=== PATIENT | male | born 1970 | race Caucasian/White ===

== ENCOUNTER 2019-01-02 14:29 | Inpatient (IN) | payer MEDICAID, OTHER ==
--- NOTE | 2019-01-02 15:37 | ED ---
Psych HPI - General Source: patient Mode of arrival: ambulatory <Imani Leon - Last Filed: 01/02/19 23:03> <Hua Mclain - Last Filed: 01/02/19 23:29> - General Chief Complaint: Psychiatric Symptoms Stated Complaint: Psych- Suicidal Time Seen by Provider: 01/02/19 14:45 - History of Present Illness Initial Comments: 48yo male presenting today for cc of "brought here by brother" pt brought in by brother [place] surveillance sensor officer after receiving text indicative of suicidal ideations. Pt has made threats of killing himself with a gun. Pt states he does have suicidal ideations with increased today. Pt has no diagnosed psychiatric history, pt takes no medications. Pt denies ingesting any substances today in attempt to commit suicide. Pt petitioned by brother. Pt appears anxious upon history taking. Pt states he has been depressed for years since his left his after cheating on him taking their children to [place]. Pt drinks often, admitting to drinking today. Remaining ROS (-), patient denies any recent fever , chills, shortness of breath, chest pain, back pain, abdominal pain, nausea or vomiting, numbness or tingling, dysuria or hematuria, constipation or diarrhea, headaches or visual changes, or any other complaints.upon arrival pt appears anxious. Denies any other complaints. Denies homicidal ideations. (Imani Leon) - Related Data Home Medications Medication Instructions Recorded Confirmed No Known Home Medications 01/02/19 01/02/19 Allergies Allergy/AdvReac Type Severity Reaction Status Date / Time Penicillins Allergy Unknown Verified 01/02/19 15:49 Childhood Review of Systems ROS Other: All systems not noted in ROS Statement are negative. <Imani Leon - Last Filed: 01/02/19 23:03> ROS Other: All systems not noted in ROS Statement are negative. <Hua Mclain - Last Filed: 01/02/19 23:29> ROS Statement: Those systems with pertinent positive or pertinent negative responses have been documented in the HPI. Past Medical History Past Medical History: No Reported History Additional Past Medical History / Comment(s): kidney stones History of Any Multi-Drug Resistant Organisms: None Reported Past Psychological History: Anxiety, Depression Smoking Status: Current every day smoker Past Alcohol Use History: None Reported, Daily, Heavy Past Drug Use History: None Reported <Imani Leon - Last Filed: 01/02/19 23:03> General Exam Limitations: no limitations <Imani Leon - Last Filed: 01/02/19 23:03> <Hua Mclain - Last Filed: 01/02/19 23:29> - General Exam Comments Initial Comments: General: The patient is awake and alert, in no distress, and does not appear acutely ill. Eye: +3 mm pupils are equal, round and reactive to light, extra-ocular movements are intact. No nystagmus. There is normal conjunctiva bilaterally. No signs of icterus. Ears, nose, mouth and throat: There are moist mucous membranes and no oral lesions. Neck: The neck is supple, there is no tenderness or JVD. Cardiovascular: There is a regular rate and rhythm. No murmur, rub or gallop is appreciated. Respiratory: Lungs are clear to auscultation, respirations are non-labored, breath sounds are equal. No wheezes, stridor, rales, or rhonchi. Gastrointestinal: Soft, non-distended, non-tender abdomen without masses or organomegaly noted. There is no rebound or guarding present. Musculoskeletal: Normal ROM, no tenderness. Strength 5/5. Sensation intact. Radial pulses equal bilaterally 2+. Neurological: A&O x 3. CN II-XII intact, There are no obvious motor or sensory deficits. Coordination appears grossly intact. Speech is normal. Skin: Skin is warm and dry and no rashes or lesions are noted. Psychiatric: Cooperative, appropriate mood & affect, normal judgment. (Imani Leon) Course <Imani Leon - Last Filed: 01/02/19 23:03> <Hua Mclain - Last Filed: 01/02/19 23:29> Vital Signs 01/02/19 14:35 Temperature 97.9 F Pulse Rate 95 Respiratory 18 Rate Blood Pressure 111/74 O2 Sat by Pulse 100 Oximetry - Reevaluation(s) Reevaluation #1: 01/02/19 23:27 The patient was brought in under petition for depression and suicidal ideation. He did personally do a [id number] evaluation the patient will be admitted I did fill out a clinical certain. (Hua Mclain) Medical Decision Making <Imani Leon - Last Filed: 01/02/19 23:03> <Hua Mclain - Last Filed: 01/02/19 23:29> - Medical Decision Making Patient petitioned by brother for suicidal thoughts. PE revealed anxiety. Pt ETOH elevated. Sober at 10:00PM. No other remarkable physical examination findings. Pt given ativan. EPS recommended admission for evaluation. Pt certified by attending provider Dr. Riley. (SanjeevjyotsnaImani Paula) - Lab Data Lab Results 01/02/19 Range/Units 15:24 Urine Color Light Yellow Urine Appearance Clear (Clear) Urine pH 7.0 (5.0-8.0) Ur Specific [place] 1.004 (1.001-1.035) Urine Protein 1+ H (Negative) Urine Glucose (UA) Negative (Negative) Urine Ketones Negative (Negative) Urine Blood Moderate H (Negative) Urine Nitrite Negative (Negative) Urine Bilirubin Negative (Negative) Urine Urobilinogen <2.0 (<2.0) mg/dL Ur Leukocyte Esterase Large H (Negative) Urine RBC 8 H (0-5) /hpf Urine WBC 22 H (0-5) /hpf Ur Squamous Epith Cells <1 (0-4) /hpf Urine Bacteria Rare H (None) /hpf Urine Opiates Screen Not Detected (NotDetected) Ur Oxycodone Screen Not Detected (NotDetected) Urine Methadone Screen Not Detected (NotDetected) Ur Propoxyphene Screen Not Detected (NotDetected) Ur Barbiturates Screen Not Detected (NotDetected) U Tricyclic Antidepress Not Detected (NotDetected) Ur Phencyclidine Scrn Not Detected (NotDetected) Ur Amphetamines Screen Not Detected (NotDetected) U Methamphetamines Scrn Not Detected (NotDetected) U Benzodiazepines Scrn Not Detected (NotDetected) Urine Cocaine Screen Not Detected (NotDetected) U Marijuana (THC) Screen Not Detected (NotDetected) Disposition <Imani Leon Chai - Last Filed: 01/02/19 23:03> <Hua Mclain - Last Filed: 01/02/19 23:29> Clinical Impression: Depression, Suicidal ideation Disposition: TRANSFER TO PSYCH HOSP/UNIT Condition: Serious
[2019-01-02 15:46] LABS: Appearance,Urine Clear (Clear); Bacteria,Urine Rare /hpf; Bilirubin,Urine Negative (Negative); Blood,Urine Moderate (Negative); Color,Urine Light Yellow; Glucose,Urine (UA) Negative (Negative); Ketones,Urine Negative (Negative); Leukocyte Esterase,Urine Large (Negative); Nitrite,Urine Negative (Negative); Protein,Urine 1+ (Negative); RBC,Urine 8 /hpf (0-5); Specific Gravity,Urine 1.004 (1.001-1.035); Squamous Epithelial Cell,Urine <1 /hpf (0-4); Urobilinogen,Urine <2.0 mg/dL (<2.0); WBC,Urine 22 /hpf (0-5)
[2019-01-02 15:50] LABS: Amphetamine Screen,Urine Not Detected (NotDetected); Barbiturate Screen,Urine Not Detected (NotDetected); Benzodiazepines Screen,Urine Not Detected (NotDetected); Cocaine Screen,Urine Not Detected (NotDetected); Methadone Screen, Urine Not Detected (NotDetected); Opiate Screen,Urine Not Detected (NotDetected); Oxycodone Screen, Urine Not Detected (NotDetected); Phencyclidine Screen,Urine Not Detected (NotDetected); Tricyclic Antidepressant,Urine Not Detected (NotDetected); Urn Cannabinoid Scrn Not Detected (NotDetected)
[2019-01-02] MEDS ORDERED: LORazepam 1 MG TAB PO STA (22:39)
[2019-01-02] MEDS ORDERED: MAG HYDROX/AL HYDROX/SIMETH 30 ML CUP PO PRN (23:15)
[2019-01-02] MEDS ORDERED: ACETAMINOPHEN TAB 325 MG TAB PO PRN (23:15)
[2019-01-02] MEDS ORDERED: ZIPRASIDONE 20 MG VIAL IM PRN (23:15)
[2019-01-02] MEDS ORDERED: MAGNESIUM HYDROXIDE 2,400 MG/10 ML CUP PO PRN (23:15)
[2019-01-02] MEDS ORDERED: LORazepam 2 MG/ML INJ IM PRN ×2 (23:19→23:23)
[2019-01-03] MEDS: LORazepam 1 MG TAB PO PRN ×3 (00:05→20:00)
[2019-01-03 08:58] LABS: Basophils # (A) 0.1 k/uL (0-0.2); Basophils % (A) 1 %; Eosinophils # (A) 0.1 k/uL (0-0.7); Eosinophils % (A) 2 %; HCT 44.2 % (39.0-53.0); HGB 14.2 gm/dL (13.0-17.5); Hypochromasia Slight; Lymphocytes % (A) 15 %; MCH 32.9 pg (25.0-35.0); MCHC 32.1 g/dL (31.0-37.0); MCV 102.6 fL (80.0-100.0); Macrocytosis Slight; Mean Platelet Volume 7.7; Monocytes # (A) 0.5 k/uL (0-1.0); Monocytes % (A) 7 %; Neutrophils # (A) 4.8 k/uL (1.3-7.7); Neutrophils % (A) 73 %; Platelet Count 118 k/uL (150-450); RBC 4.31 m/uL (4.30-5.90); RDW 15.3 % (11.5-15.5); WBC 6.6 k/uL (3.8-10.6)
[2019-01-03 09:14] LABS: Albumin 3.2 g/dL (3.5-5.0); Calcium 8.1 mg/dL (8.4-10.2); Total Bilirubin 1.8 mg/dL (0.2-1.3); Total Protein 6.3 g/dL (6.3-8.2)
[2019-01-03 09:23] LABS: Potassium 2.6 mmol/L (3.5-5.1)
[2019-01-03] MEDS: POTASSIUM CHLORIDE ER 20 MEQ TAB.ER PO SCH ×3 (09:58→13:58)
[2019-01-03] MEDS: NICOTINE 14MG/24HR PATCH TRANSDERM SCH (10:12)
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
[2019-01-03] MEDS: THIAMINE 100 MG TAB PO SCH (12:41)
[2019-01-03] MEDS: FOLIC ACID 1 MG TAB PO SCH (12:42)
[2019-01-03] MEDS: MAGNESIUM OXIDE 400 MG TAB PO SCH ×2 (16:39→22:02)
[2019-01-03] MEDS: LACTATED RINGERS 1,000 ML IV SCH (19:51)
[2019-01-03] MEDS: SODIUM BICARBONATE TAB 650 MG TAB PO SCH ×2 (20:00→22:02)
--- NOTE | 2019-01-03 20:10 | CONS ---
CONSULTATION DATE OF CONSULTATION: January 03, 2019. REASON FOR CONSULTATION: Medical management requested by Dr. Garcia. CONSULTATION: This is a 48-year-old patient who follows with Dr. Linton out of [place]. The patient smokes less than a pack a day and sometimes even more depending on how much and how his day is going. Also drinks a variable amount of alcohol, anywhere from 6 beers to more or less. 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 The patient feels very low, but the fact that his kids and his ex- have gone down to [place] where she apparently has somebody even though there is a court order in place for parenting the kids have been taken away and he feels rather helpless about the whole situation, rather morose when he is talking about the whole thing. He states he really did want to kill himself, but he may have said that. The patient denies any other really medical problems. He has a history of kidney stones. Does not really take any medications. REVIEW OF SYSTEMS: CONSTITUTIONAL: Weak and tired. HEENT: None. RESPIRATORY: None. GASTROINTESTINAL: None. GASTROINTESTINAL: None. GENITOURINARY: None. MUSCULOSKELETAL: None. DERMATOLOGICAL: Some flushing on the face. PSYCHIATRY as above. NEUROLOGICAL none. PAST MEDICAL HISTORY: Kidney stones. PAST SURGICAL HISTORY: None. SOCIAL HISTORY: Lives with friends. Smokes a variable amount of cigarettes, variable amount of alcohol. 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 FAMILY HISTORY: Reviewed not pertinent to presentation. HOME MEDICATIONS: None. EXAMINATION: VITAL SIGNS: Temperature 97.9, pulse 95, respiratory 18, blood pressure 111/74, pulse ox 100 percent on room air. GENERAL APPEARANCE: Well built, lying in bed. Anxious-appearing. EYES: Pupils equal. Conjunctivae normal. HEENT: Flushing of the face. NECK: JVD not raised. Mass not palpable. RESPIRATORY: Effort normal. LUNGS: Slightly diminished breath sounds. CARDIOVASCULAR: First and second sounds normal. No edema. ABDOMEN: Soft, nontender. Liver and spleen not palpable. LYMPHATICS: No lymph nodes palpable in the neck and axilla. PSYCHIATRY: Alert and oriented x3. Mood and affect anxious-appearing. NEUROLOGICAL: Pupils equal. Cranial nerves grossly intact. Power and sensation grossly intact. INVESTIGATIONS: White count 6.6, hemoglobin 14.2, platelets 118, potassium 2.6, BUN 24, creatinine 2.46, bicarb is 18, bilirubin 1.8, AST 87, ALT 77. TSH normal. UA showing leuko esterase, WBC. Urine drug screen negative. ASSESSMENT: 1. Acute renal failure cause at this point, undetermined. 2. Severe hypokalemia. 3. Metabolic acidosis probably in the setting of renal failure. 4. Likely alcoholic hepatitis. 5. Hyperbilirubinemia. 6. Thrombocytopenia likely from chronic alcoholism. 7. Chronic nicotine dependence patient is a cigarette smoker. PLAN: Patient potassium will be aggressively replaced 40 mEq x3 doses at 2 hour intervals was ordered this morning. We will also order sodium bicarbonate. Given the renal failure, we will start the patient on lactated Ringer's and check daily BMP. The patient should go on a CIWA scale with Ativan for withdrawal. Patient was counseled against smoking. Care was discussed with the patient. Patient should follow up with Dr. Linton upon discharge. Follow labs closely. Thank you, Dr. Garcia. MMCARTERL / REMA: [id number] /
[2019-01-04] MEDS: LACTATED RINGERS 1,000 ML IV SCH ×3 (04:15→21:04)
[2019-01-04] MEDS: MAGNESIUM OXIDE 400 MG TAB PO SCH ×3 (07:58→21:08)
[2019-01-04] MEDS: VENLAFAXINE HCL ER 37.5 MG CAP PO SCH (07:58)
[2019-01-04] MEDS: SODIUM BICARBONATE TAB 650 MG TAB PO SCH ×3 (07:58→21:08)
[2019-01-04] MEDS: NICOTINE 14MG/24HR PATCH TRANSDERM SCH (07:58)
[2019-01-04 10:16] LABS: Calcium 8.2 mg/dL (8.4-10.2); Potassium 3.2 mmol/L (3.5-5.1)
[2019-01-04 12:07] LABS: Hemoglobin A1C 5.2 % (4.0-6.0)
[2019-01-04] MEDS: FOLIC ACID 1 MG TAB PO SCH (12:11)
[2019-01-04] MEDS: THIAMINE 100 MG TAB PO SCH (12:11)
[2019-01-04] MEDS ORDERED: POTASSIUM CHLORIDE ER 20 MEQ TAB.ER PO STA (13:23)
--- NOTE | 2019-01-04 17:29 | US ---
EXAMINATION TYPE: US kidneys/renal and bladder DATE OF EXAM: 01/04/2019 COMPARISON: NONE CLINICAL HISTORY: wheelchair. EXAM MEASUREMENTS: Right Kidney: 13.1 x 7.4 x 7.1 cm Left Kidney: 12.4 x 6.3 x 5.8 cm Right Kidney: Appearance of medullary sponge kidney with hydronephrosis vs. medullary nephrocalcinosi s with hydronephrosis Left Kidney: Appearance of calcified medullary pyramids raises concern for for medullary nephrocalcin osis Bladder: wnl *incidental finding hepatosplenomegaly. IMPRESSION: 1. Severe right hydronephrosis and findings either related to medullary sponge kidney or nephrocalcin osis. CT abdomen and pelvis could assess for etiology of the right-sided obstructive uropathy. 2. Incidentally noted hepatosplenomegaly.
[2019-01-04 20:28] LABS: Appearance,Urine Clear (Clear); Bilirubin,Urine Negative (Negative); Blood,Urine Trace (Negative); Color,Urine Yellow; Glucose,Urine (UA) Negative (Negative); Ketones,Urine Negative (Negative); Leukocyte Esterase,Urine Large (Negative); Mucus,Urine Rare /hpf; Nitrite,Urine Negative (Negative); Protein,Urine Trace (Negative); RBC,Urine 7 /hpf (0-5); Specific Gravity,Urine 1.006 (1.001-1.035); Urobilinogen,Urine <2.0 mg/dL (<2.0); WBC,Urine 31 /hpf (0-5)
[2019-01-04] MEDS: LORazepam 1 MG TAB PO PRN (21:10)
--- NOTE | 2019-01-05 00:46 | PN ---
PROGRESS NOTE DATE OF SERVICE: 01/04/2019. PRESENTING COMPLAINT: Depressed. INTERVAL HISTORY: This patient was admitted to the psychiatry unit for severe depression, some suicidal ideation. The patient does appear much better today, walking about, actually tolerating a diet. On further questioning earlier today, patient does state that he has not had blood work done for his kidneys for a long time, maybe years. The patient is known to have multiple kidney stones. I did start the patient on IV fluids last night. For some reason it was held this morning. I did restart it this morning. Otherwise, patient is up and about, more so with himself. REVIEW OF SYSTEMS: Done for constitutional, cardiovascular, GI, pulmonary; relevant findings as above. CURRENT MEDICATIONS: Reviewed, that include IV fluids. PHYSICAL EXAMINATION: VITAL SIGNS: Temperature 98.1, pulse 85, respiratory rate 20, blood pressure 110/66, pulse ox 100 percent on room air. GENERAL APPEARANCE: Sitting up, awake. EYES: Pupils equal. Conjunctivae normal. NECK: JVD not raised. Mass not palpable. Respiratory effort normal. LUNGS: Slightly decreased breath sounds. CARDIOVASCULAR: 1st and 2nd sounds normal. No edema. ABDOMEN: Soft, nontender. Liver and spleen not palpable. PSYCHIATRY: Alert, oriented x3. Mood and affect anxious-appearing. INVESTIGATIONS: Blood work from this morning showed a BUN of 23, creatinine 2.35, potassium of 3.2. UA showing leuko esterase and WBC . Renal ultrasound showing severe right hydronephrosis and finding suspect from medullary sponge kidney or nephrocalcinosis and some hepatosplenomegaly. ASSESSMENT: 1. Most likely chronic kidney disease probably from obstructive uropathy, stage III. We will give patient 24 hours IV fluid to see if there is acute component. 2. Hepatosplenomegaly, likely from secondary portal hypertension. Could be from portal hypertension secondary to alcoholism. 3. Hypokalemia. Potassium being replaced. 4. Metabolic acidosis from renal failure. 5. Alcoholic hepatitis. 6. Thrombocytopenia from chronic alcoholism. 7. Chronic nicotine dependence, patient is a cigarette smoker. 8. Possible urinary tract infection with cystitis. The patient really does not manifest any symptoms. PLAN: Nephrology and Urology consulted this morning. We will give IV fluids until tomorrow morning. Repeat the labs. If renal function is chronic, then further workup and followup as an outpatient with no acute intervention. Will start the patient on Keflex for the same. MMODL / IJN: [id number] /
[2019-01-05] MEDS: LACTATED RINGERS 1,000 ML IV SCH ×2 (04:55→10:45)
[2019-01-05] MEDS: CEPHALEXIN 250 MG CAP PO SCH ×2 (07:58→15:20)
[2019-01-05] MEDS: MAGNESIUM OXIDE 400 MG TAB PO SCH ×3 (07:59→20:59)
[2019-01-05] MEDS: SODIUM BICARBONATE TAB 650 MG TAB PO SCH ×3 (07:59→20:59)
[2019-01-05] MEDS: VENLAFAXINE HCL ER 37.5 MG CAP PO SCH (07:59)
[2019-01-05] MEDS: NICOTINE 14MG/24HR PATCH TRANSDERM SCH ×2 (07:59→08:02)
--- NOTE | 2019-01-05 08:43 | CT ---
EXAMINATION TYPE: CT abdomen pelvis wo con DATE OF EXAM: 01/05/2019 HISTORY: Hydronephrosis CT DLP: 1205.1 mGycm. Automated Exposure Control for Dose Reduction was Utilized. TECHNIQUE: CT scan of the abdomen and pelvis is performed without oral or IV contrast. COMPARISON: Renal ultrasound from yesterday FINDINGS: Within the limitations of a non-contrast study, the following observations are made. LUNG BASES: Motion artifact degradation makes evaluation suboptimal. There is 5 x 4 mm subpleural nod ule or nodular opacity right lung base axial image 12. LIVER/GB: Liver is diffusely markedly low dense consistent with fatty infiltration. Liver is upper li mits of normal in size. PANCREAS: No significant abnormality is seen. SPLEEN: Spleen is mildly enlarged at 14.0 cm long axis axial image 32. ADRENALS: No significant abnormality is seen. KIDNEYS: Correlating with ultrasound there are innumerable central medullary calcifications or calcul i somewhat confluent in appearance in the left kidney, I suspect between 20-30 calcifications. There is sparing of the calyces and collecting system. There is 1.8 cm exophytic simple appearing cyst medi ally posteriorly mid pole level left kidney axial image 64. There is exophytic posterior 2.7 x 2.1 cm fat and soft tissue lesion consistent with angiomyolipoma posteriorly lower pole level left kidney a xial image 75. Similar smaller 1.8 x 1.2 cm angiolipoma is seen laterally upper to mid pole level lef t kidney axial image 57. No hydronephrosis or obstructing ureter calculi are identified on the left. Bladder is satisfactorily distended without intraluminal calculus or wall thickening. Few scattered p elvic phleboliths are present. Right kidney shows severe hydronephrosis with peripheral curvilinear and focal calcifications involvi ng calyces and/or medullary portion of right kidney with similar innumerable calcifications likely at least 30 calculi to the opposite left kidney. There is obstructing 9 mm calculus mid to distal right ureter axial image 127. There is second 7 mm calculus distal right ureter right before UVJ axial mallika ge 143. No hydroureter distal to first calculus is identified. There is fat and soft tissue exophytic lesion posteriorly mid pole level right kidney measuring 1.9 x 1.7 cm consistent with angiomyolipoma . BOWEL: Occasional diverticula are seen in the proximal sigmoid colon. GENITAL ORGANS: No gross abnormality seen. LYMPH NODES: No greater than 1cm abdominal or pelvic lymph nodes are appreciated. There are prominent but subcentimeter lymph nodes throughout the retroperitoneum. OSSEOUS STRUCTURES: No significant abnormality is seen. OTHER: No significant additional abnormality is seen. IMPRESSION: 1. There is underlying medullary nephrocalcinosis with innumerable medullary calcifications and calcu li bilaterally. There is severe right-sided hydronephrosis due to obstructing 9 mm calculus mid to di stal right ureter. There is additional 7 mm calculus in the distal right ureter noted right before UV J. 2. Patient also has bilateral angiomyolipomas, presence of bilateral lesions raises concern for under lying phakomatosis and requires clinical correlation/follow-up. 3. Marked fatty infiltration of liver is confirmed. Splenomegaly also confirmed.
[2019-01-05 09:04] LABS: Calcium 8.1 mg/dL (8.4-10.2); Potassium 3.5 mmol/L (3.5-5.1)
--- NOTE | 2019-01-05 11:33 | P.PN ---
Progress Note - Text Interval history: The patient's found in his room. He indicates his mood is okay but still down he still reports feeling overwhelmed due to past losses. He was seen by internal medicine and underwent a computed tomography scan of his abdomen. He is receiving IV hydration. He has 2 kidney stones in his right ureter with a right-sided hydronephrosis. He also has fatty infiltration of his liver likely due to excessive alcohol use. Neurology and nephrology have been consulted by internal medicine. The patient has been isolating in his room except for meals. He is encouraged to participate in the milieu. He has not showered he is encouraged to attend to his activities of daily living. Mental status exam: The patient is a tall male dressed in hospital gowns. He has a disheveled appearance his hygiene is impaired. Eye contact is intermittent. In terms of speech she is verbose but directable. He demonstrates no tangential thinking loose associations or flight of ideas. He reports no auditory or visual hallucinations or any specific delusions. He does continue to have some hopelessness thinking he feels safe here in the hospital in terms of suicidal ideation. He is reporting no homicidal ideation. He demonstrates no tremulousness activity. Insight and judgment are impaired. He demonstrates no verbal or physical aggressiveness. Plan: The patient will continue on the Effexor XR I will titrate the dose to 75 mg daily. He is being seen by internal medicine nephrology in urology. Imaging results were reviewed. Vital signs reviewed. We will continue to monitor him for safety and encourage participation in the milieu and we will encourage participation in his activities of daily living. He requires continued psychiatric hospitalization for evaluation and treatment. He continues to offer resistance to the idea of needing to abstain from alcohol we will continue that discussion and recommend inpatient chemical dependency treatment if he is motivated.
[2019-01-05] MEDS: THIAMINE 100 MG TAB PO SCH (12:18)
[2019-01-05] MEDS: FOLIC ACID 1 MG TAB PO SCH (12:18)
--- NOTE | 2019-01-05 12:34 | P.GSCN ---
History of Present Illness Consult date: 01/05/19 History of present illness: The patient is a 48-year-old gentleman whom I've been asked to see first kidney stone disease. He is in the hospital with depression. General medical evaluation was performed by and he was found to have renal insufficiency. An ultrasound identified right sided hydronephrosis which was severe and chronic. I ordered a computed tomography scan without contrast identifying chronic right-sided hydronephrosis, severe, he dilated ureter with 2 stones in the distal ureter. Bilateral medullary sponge kidneys with nephrocalcinosis. Historically the patient states that he has passed over 200 stones over the last couple years. I saw many years ago for stones. He is been asymptomatic recently but has most recently passed stones. He states most commonly on the right side. His fever or chills. He denies nausea or vomiting. He has not sought medical attention when he passes the stones. His creatinine is 2.3 and has been stable during this last 24 hours. I suspect this is chronic. Based on the appearance of the computed tomography scan. Review of Systems - Constitutional Reports chronic pain, Reports lethargy, Reports weight gain - Genitourinary Reports as per HPI Past Medical History Past Medical History: No Reported History Additional Past Medical History / Comment(s): kidney stones History of Any Multi-Drug Resistant Organisms: None Reported Past Psychological History: Anxiety, Depression Smoking Status: Current every day smoker Past Alcohol Use History: None Reported, Daily, Heavy Past Drug Use History: None Reported Medications and Allergies Home Medications Medication Instructions Recorded Confirmed Type No Known Home Medications 01/02/19 01/02/19 History Allergies Allergy/AdvReac Type Severity Reaction Status Date / Time Penicillins Allergy Unknown Verified 01/02/19 15:49 Childhood Surgical - Exam Vital Signs Temp Pulse Resp BP Pulse Ox 97.9 F 95 18 111/74 100 01/02/19 14:35 01/02/19 14:35 01/02/19 14:35 01/02/19 14:35 01/02/19 14:35 - General well developed, well nourished, no distress - Eyes PERRL - ENT no hearing loss - Neck no masses - Respiratory normal expansion, normal respiratory effort - Cardiovascular Rhythm: regular - Abdomen Abdomen: soft, non tender - Integumentary no rash, no growths - Neurologic normal coordination, normal sensation - Musculoskeletal normal gait, normal posture - Psychiatric oriented to time, oriented to person, speech is normal, memory intact The patient is depressed Results - Labs 01/03/19 08:27 01/05/19 08:37 Abnormal Lab Results - Last 24 Hours (Table) 01/04/19 01/05/19 Range/Units Unknown 08:37 Chloride 110 H (98-107) mmol/L BUN 22 H (9-20) mg/dL Creatinine 2.39 H (0.66-1.25) mg/dL Glucose 123 H (74-99) mg/dL Calcium 8.1 L (8.4-10.2) mg/dL Urine Protein Trace H (Negative) Urine Blood Trace H (Negative) Ur Leukocyte Esterase Large H (Negative) Urine RBC 7 H (0-5) /hpf Urine WBC 31 H (0-5) /hpf Urine Mucus Rare H (None) /hpf Diabetes panel 01/05/19 Range/Units 08:37 Sodium 138 (137-145) mmol/L Potassium 3.5 (3.5-5.1) mmol/L Chloride 110 H (98-107) mmol/L Carbon Dioxide 22 (22-30) mmol/L BUN 22 H (9-20) mg/dL Creatinine 2.39 H (0.66-1.25) mg/dL Glucose 123 H (74-99) mg/dL Calcium 8.1 L (8.4-10.2) mg/dL Calcium panel 01/05/19 Range/Units 08:37 Calcium 8.1 L (8.4-10.2) mg/dL Pituitary panel 01/05/19 Range/Units 08:37 Sodium 138 (137-145) mmol/L Potassium 3.5 (3.5-5.1) mmol/L Chloride 110 H (98-107) mmol/L Carbon Dioxide 22 (22-30) mmol/L BUN 22 H (9-20) mg/dL Creatinine 2.39 H (0.66-1.25) mg/dL Glucose 123 H (74-99) mg/dL Calcium 8.1 L (8.4-10.2) mg/dL Adrenal panel 01/05/19 Range/Units 08:37 Sodium 138 (137-145) mmol/L Potassium 3.5 (3.5-5.1) mmol/L Chloride 110 H (98-107) mmol/L Carbon Dioxide 22 (22-30) mmol/L BUN 22 H (9-20) mg/dL Creatinine 2.39 H (0.66-1.25) mg/dL Glucose 123 H (74-99) mg/dL Calcium 8.1 L (8.4-10.2) mg/dL - Imaging CT scan - abdomen: report reviewed, image reviewed CT scan - pelvis: report reviewed, image reviewed Assessment and Plan Assessment: Impression: Active kidney stone disease, medullary sponge kidney with nephrocalcinosis. Right-sided hydronephrosis chronic significant image to the kidney. Right ureteral calculi chronic. Multiple left renal parenchymal stones. Depression Recommendations: The patient needs a right ureteral stones addressed in the relatively near future. Even the appearance of the kidney I suspect this is quite chronic and addressing the depression is more important. Upon discharge she should have an appointment to set up ureteroscopy and laser lithotripsy. Will need metabolic evaluation to try to control is very active stone disease. We'll then address how to handle the renal stones as most of these are parenchymal stones. He may need percutaneous nephrostolithotomy to clean out the kidneys of the calyceal stones, if he is interested.
--- NOTE | 2019-01-05 12:41 | CONS ---
CONSULTATION REASON FOR CONSULT: Renal failure. HISTORY OF PRESENT ILLNESS: The patient is a 48-year-old male who has a history of nephrolithiasis with previous history of obstructive uropathy and multiple kidney stones. Patient has been evaluated by Dr. Hwang and has had multiple lithotripsies. He was admitted to the inpatient psych unit with suicidal ideation and depression. Patient denies having had weak kidney function previously. Serum creatinine was 2.46 on initial admission. It is at 2.39, now. We do not have any previous labs available for comparison. A CT of the abdomen and pelvis was done which showed evidence of severe right hydronephrosis with 9 mm calculus and bilateral multiple calcifications noted. At this time, patient denies any urinary symptoms. He does not have any flank pain or abdominal pain. He has been voiding fairly well. Blood pressure is on the lower side. Patient was maintained on CHANTELLE inhibitors at home. He denies use of any nonsteroidal anti-inflammatory agents. PAST MEDICAL HISTORY: Nephrolithiasis. MEDICATIONS: Prior to admission included none. SOCIAL HISTORY: Positive for smoking, consumes alcohol occasionally. No history of drug abuse. PAST SURGICAL HISTORY: None. REVIEW OF SYSTEMS: As per HPI. Other systems negative. PHYSICAL EXAMINATION: Patient is comfortable, awake, alert, oriented x3, not in any acute distress. Blood pressure was 102/56, heart rate 82 per minute. He is afebrile. Examination of the heart, S1, S2. Examination of the lungs, bilateral breath sounds are heard. Abdomen is soft, nontender. Examination of the lower extremities shows no evidence of edema. CREMATOR exam is grossly intact. LABS: Show sodium 138, potassium 3.5, BUN 22, serum creatinine 2.39, hemoglobin was 14.2, calcium 8.1. UA shows trace protein, large leukocyte esterase, WBC is 31. ASSESSMENT: 1. Acute kidney injury, most likely associated with hypotension and hypoperfusion and possible underlying intravascular volume depletion. I will continue with the IV fluids. I will hold off on the CHANTELLE inhibitors. We will recheck labs in a.m. We also need to try and obtain previous labs to assess patient's baseline renal function. Currently there are no previous labs available in the computer for comparison. 2. Pyuria, rule out underlying urinary tract infection. Check urine cultures. 3. Right hydronephrosis with a 9 mm calculus as well as bilateral significant calcinosis and medullary calcifications. 4. Hypokalemia, currently improved. 5. Metabolic acidosis, most likely secondary to renal failure, currently improved. PLAN: Discontinue lisinopril. Continue IV fluids. Repeat labs in a.m. Consult Urology and we will try and obtain previous labs for comparison of renal function. Check urine cultures. Thank you for this consultation. Will continue to follow the patient with you during his hospitalization. DAYSI / SARAHN: [id number] / STACEY
[2019-01-05] MEDS ORDERED: diphenhydrAMINE 25 MG CAP PO STA (21:01)
--- NOTE | 2019-01-06 01:22 | PN ---
PROGRESS NOTE DATE OF SERVICE: January 05, 2019. PRESENTING COMPLAINT: Renal function off. INTERVAL HISTORY: Patient admitted to Psychiatry for severe depression, suicidal ideation. Doing much better, up and about. Tolerating a diet. The patient did receive IV fluids. It appears the patient's renal disorder is all chronic. There has been no change in creatinine. He has had multiple kidney stones not had renal function checked for a while. The patient is up and about in the evening. Patient had still a bit more for rash on the face and Keflex was discontinued. REVIEW OF SYSTEMS: Done for constitutional, cardiovascular, GI, pulmonary; relevant findings as above. CURRENT MEDICATIONS: Reviewed. PHYSICAL EXAMINATION: VITAL SIGNS: Temperature 97.7, pulse 82, respiratory 18, blood pressure 102/56, pulse ox 96% on room air. GENERAL APPEARANCE: Awake. EYES: Pupils equal. Conjunctivae normal. NECK: JVD not raised. RESPIRATORY: Effort normal. LUNGS: Slightly decreased breath sounds. CARDIOVASCULAR: 1st and 2nd sounds normal. No edema. ABDOMEN: Soft, nontender. Liver and spleen palpable. PSYCHIATRY: Alert and oriented x3. Mood and affect more cheerful. DERMATOLOGICAL: A maculopapular rash on the face. INVESTIGATIONS: Potassium 3.5, BUN 22, creatinine 2.39. CT scan of the abdomen and pelvis done this morning shows multiple calcifications with medullary nephrocalcinosis with severe right- sided hydronephrosis due to obstructing calculi mid to distally right ureter and also another distal right ureter. Also presence of bilateral angiomyolipoma and marked fatty infiltration of the liver and splenomegaly. ASSESSMENT: 1. Chronic kidney disease stage 3 from medullary sponge kidney. 2. Severe right-sided hydronephrosis from right-sided ureter. 3. Hepatosplenomegaly, possibly from portal hypertension. 4. Hypokalemia, corrected. 5. Metabolic acid renal failure. 6. Alcoholic hepatitis. 7. Thrombocytopenia from chronic alcoholism. 8. Chronic nicotine dependence, patient is a cigarette smoker. 9. Abnormal urine with inflammatory cells probably not infection. PLAN: Patient's care was discussed at length with Dr. Hwang. The patient will follow up with him in the outpatient. IV fluids can be discontinued. The patient will need intervention down the road. Also again spoke at length with the patient about stopping alcohol completely. In the evening there was some concern about a rash from the Keflex. This was discontinued and 1 dose of Benadryl has also been given. Care was discussed with the patient. I also discussed with Dr. De from Psychiatry. Did update him. Total spent time today was about 45 minutes with close to over 30 minutes with discussion. DAYSI / REMA: [id number] /
[2019-01-06] MEDS: LORazepam 1 MG TAB PO PRN (04:44)
[2019-01-06] MEDS ORDERED: VENLAFAXINE HCL ER 75 MG CAP PO SCH (09:00)
[2019-01-06 09:32] LABS: Calcium 8.8 mg/dL (8.4-10.2); Potassium 3.4 mmol/L (3.5-5.1)
[2019-01-06] MEDS: SODIUM BICARBONATE TAB 650 MG TAB PO SCH ×3 (09:40→20:53)
[2019-01-06] MEDS: MAGNESIUM OXIDE 400 MG TAB PO SCH ×3 (09:40→20:53)
[2019-01-06] MEDS: NICOTINE 14MG/24HR PATCH TRANSDERM SCH (09:40)
[2019-01-06] MEDS: THIAMINE 100 MG TAB PO SCH (12:59)
[2019-01-06] MEDS: FOLIC ACID 1 MG TAB PO SCH (12:59)
--- NOTE | 2019-01-06 13:27 | P.PN ---
Progress Note - Text Interval history: The patient's found in his room sleeping he follows me to an interview room he indicates his mood is improved in the sense that he has no suicidal ideation. He did experience a facial rash which is either due to the Keflex or the Effexor XR. Both medications of been stopped. He does not wish to initiate another antidepressant as he feels this will happen with all of them. We reviewed the results of the medical testing including evidence of adverse effects of alcohol use on his body. He does not wish to participate in inpatient chemical dependency treatment. He is willing to participate in a support meeting with his brother. Social work will be asked to facilitate that. The patient has been selectively attending groups. He was found in his room sleeping however just prior to lunch. Mental status exam: The patient is a tall overweight male he is a disheveled appearance he is dressed in hospital gowns. Eye contact is intermittent. He does have an erythematous rash on his face. He reports no suicidal ideation no homicidal ideation. He is reporting no auditory or visual hallucinations or any specific delusions. He demonstrates no evidence of hypomania or joseph. He is oriented to person place and date. He demonstrates no verbal or physical aggressiveness he demonstrates no involuntary repetitive movements. He maintains a constricted affect. Plan: The patient's is encouraged to participated in the milieu and attend to his activities of daily living. We will monitor him for safety. We will await the outcome of a support meeting involving his brother. The patient's encouraged to think about inpatient chemical dependency treatment but he denies wanting to participate in an activity. We will consider discharging him in the next 1-2 days.
[2019-01-06] MEDS ORDERED: POTASSIUM CHLORIDE ER 20 MEQ TAB.ER PO STA (21:06)
[2019-01-06] MEDS ORDERED: diphenhydrAMINE 25 MG CAP PO ONE (21:35)
[2019-01-07 06:53] VITALS: RESP 16
[2019-01-07] MEDS: MAGNESIUM OXIDE 400 MG TAB PO SCH ×3 (08:38→21:50)
[2019-01-07] MEDS: SODIUM BICARBONATE TAB 650 MG TAB PO SCH ×2 (08:38→16:54)
[2019-01-07] MEDS: NICOTINE 14MG/24HR PATCH TRANSDERM SCH (08:39)
[2019-01-07 09:29] LABS: Potassium 3.6 mmol/L (3.5-5.1)
[2019-01-07] MEDS: THIAMINE 100 MG TAB PO SCH (11:17)
[2019-01-07] MEDS: FOLIC ACID 1 MG TAB PO SCH (11:17)
[2019-01-07] MEDS ORDERED: POTASSIUM CHLORIDE ER 20 MEQ TAB.ER PO STA (12:08)
--- NOTE | 2019-01-07 12:09 | P.PN ---
Subjective Patient is seen in follow-up for acute kidney injury. Unclear as to what his baseline function is. Admits to good urine output. No hematuria or dysuria. No vomiting or diarrhea. Vital signs are stable. General: The patient appeared well nourished and normally developed. HEENT: Head exam is unremarkable. Neck is without jugular venous distension. LUNGS: Lungs are clear to auscultation and percussion. Breath sounds decreased. HEART: Rate and Rhythm are regular. First and second heart sounds normal. No murmurs, rubs or gallops. ABDOMEN: Abdominal exam reveals normal bowel sounds. Non-tender and non- distended. No evidence of peritonitis. EXTREMITITES: No clubbing, cyanosis, or edema. Objective - Vital Signs Vital signs: Vital Signs Temp 98.3 F 01/07/19 06:36 Pulse 94 01/07/19 06:36 Resp 16 01/07/19 06:36 BP 119/60 01/07/19 06:36 Pulse Ox 96 01/05/19 21:00 - Labs CBC & Chem 7: 01/03/19 08:27 01/07/19 08:18 Labs: Abnormal Lab Results - Last 24 Hours (Table) 01/07/19 Range/Units 08:18 Chloride 108 H (98-107) mmol/L BUN 25 H (9-20) mg/dL Creatinine 2.59 H (0.66-1.25) mg/dL Assessment and Plan Plan: Assessment: 1. Acute kidney injury secondary to ATN secondary to hypotension as well as component of obstruction. Unclear as to what his baseline renal function is. Creatinine today is up to 2.59. 2. Right-sided hydronephrosis with nephrolithiasis and nephrocalcinosis. 3. Metabolic acidosis maintained on oral sodium bicarbonate. 4. Hypokalemia status post replacement. Rule out magnesium deficiency. 5. Pyuria. Plan: Continue to hold CHANTELLE inhibitor. Patient will need to follow-up with urology outpatient for ureteroscopy and possible right stent placement. Maintain oral sodium bicarbonate. Replace potassium. 20 mg once today. Check magnesium level. Check urine culture. Patient will need to follow-up as an outpatient for further workup for kidney stones including 24-hour urine collection.
--- NOTE | 2019-01-07 12:20 | P.DS ---
Providers Date of admission: 01/02/19 22:47 Expected date of discharge: 01/07/19 Attending physician: Ham Garcia DO Consults: 01/02/19 23:15 Consult Physician Routine Consulting Provider: Eduar Lawson Consult Reason/Comments: medical management Do you want consulting provider notified?: Yes, Notify in am 01/04/19 13:25 Consult Physician Routine Consulting Provider: Saritha Steward Consult Reason/Comments: chronic kidney disease. Do you want consulting provider notified?: Yes 01/04/19 20:07 Consult Physician Routine Consulting Provider: Paul Angel Consult Reason/Comments: poss R hydronephrosis with renal failure Do you want consulting provider notified?: Yes Primary care physician: Cam Linton - Bernice Diagnosis(es) (1) Major depressive disorder, recurrent severe without psychotic features Current Visit: Yes Status: Acute Priority: High (2) Alcohol use disorder Current Visit: Yes Status: Acute Priority: High Hospital Course: Brief summary of admission note: This patient is a 48-year-old male who was admitted to the mental health unit through the emergency room for suicidal ideation. The patient was petition by his brother as the patient had made statements of wanting to shoot himself. The patient had been struggling with significant symptoms of depression for the last several years. He states it all dated back to when his him in 2010. Following the divorce he lost his job. His ex- moved to [place] with his daughters. He finds appear difficult recovering from these losses and felt hopeless. Confounding his situation he has been overusing alcohol for quite some time. He described having 5-6 beers daily and sometimes 6 shots concurrently. Summary of hospital course: The patient was admitted to the mental health unit voluntarily. We reviewed his presenting symptoms and treatment options. He was started on Effexor XR for depressive symptoms. He was also started on Keflex by internal medicine. The patient experienced a facial rash which seem to be ALLERGIC in nature. Both the Effexor XR and Keflex were discontinued. The patient states that he believes it's from the Effexor XR and had stated that he had an ALLERGIC reaction exactly the same to Lexapro. He does not feel that he can tolerate antidepressant medication and did not wish to have another one selected during the course of this hospitalization. The patient was seen by internal medicine. He has a markedly elevated BUN/creatinine creatinine he was seen by nephrology. He was determined that he does have chronic kidney disease as well as significant nephrolithiasis. Imaging revealed 2 stones and his ureter and at the time a hydronephrosis on the right side. Imaging also demonstrated some hepatosplenomegaly as well as fatty liver infiltration. We discussed the results and the impact that alcohol is having on his physical health. He was encouraged to consider inpatient chemical dependency treatment but he refuses that option. The patient states that his suicidal thoughts have resolved he does demonstrate future oriented thinking. His brother who petitioned him was present for a support meeting today. His brother indicates that the patient can go back residing with his friends and his brother had no concern about the patient being discharged today. Mental status exam: The patient is a tall male appearing his stated age. He wears a conde. Hygiene much improved grooming adequate. He is dressed in his own clothing. He indicates his mood is better he reports no suicidal ideation intent or plan. He reports no homicidal ideation intent or plan. He is endorsing no auditory or visual hallucinations or any specific delusions. He demonstrates no tangential thinking loose associations or flight of ideas. He does not appear hypomanic or manic. Affect is constricted. He demonstrates no verbal or physical aggressiveness. He demonstrates no involuntary repetitive movements. He demonstrates no further tremor from alcohol withdrawal. Insight and judgment grossly intact. Impressions 1. Major depressive disorder recurrent severe without psychosis, alcohol use disorder 2. Medical comorbidities include nephrolithiasis, chronic kidney disease, fatty liver infiltration Plan: The patient will be discharged mental health unit today. He no longer requires inpatient psychiatric hospitalization. The patient is motivated to be discharged today. His facial rash is resolving. He does not wish to have another antidepressant prescribed to him at this time. We spoke at length regarding the importance of him abstaining from alcohol because of its adverse physical consequences and the fact that he can elevate his safety risk. He was encouraged to consider inpatient chemical dependency treatment but refuses that option. At this time there is no imminent safety risk he is appropriate for transition outpatient care. He will follow up with an intake at [facility] either today or tomorrow. The patient's brother informed child protective services social worker he can assist the patient in getting to that appointment. The patient's instructed to return to the hospital with any acute safety concerns. Patient Condition at Discharge: Stable Plan - Discharge Summary New Discharge Prescriptions: New Nicotine 14Mg/24Hr Patch [Habitrol] 1 patch TRANSDERM DAILY #10 patch Sodium Bicarbonate Tab 650 mg PO TID #45 tab Discharge Medication List Nicotine 14Mg/24Hr Patch [Habitrol] 1 patch TRANSDERM DAILY #10 patch 01/07/19 [Rx] Sodium Bicarbonate Tab 650 mg PO TID #45 tab 01/07/19 [Rx] Follow up Appointment(s)/Referral(s): None,Stated [REFERRING] - 1-2 days Christiano Hwang MD [STAFF PHYSICIAN] - 1 Week
[2019-01-08] MEDS: LORazepam 1 MG TAB PO PRN (00:25)
[2019-01-08 00:27] VITALS: BP 112/65; PULSE 99; TEMP 97.9
[2019-01-08 08:02] LABS: Calcium 8.9 mg/dL (8.4-10.2); Magnesium 2.2 mg/dL (1.6-2.3); Potassium 3.8 mmol/L (3.5-5.1)
[2019-01-08] MEDS: MAGNESIUM OXIDE 400 MG TAB PO SCH (08:32)
[2019-01-08] MEDS: NICOTINE 14MG/24HR PATCH TRANSDERM SCH (08:33)
--- NOTE | 2019-01-08 10:24 | P.PN ---
Progress Note - Text Interval history: The patient is found in group he follows me to an interview room. We had planned on discharging him yesterday but he was unable to return to his previous residence. billet worker contacted his family and it has been determined that he will reside with his mother. The patient's brother will pick him up and get him to his [facility] mental health intake. The patient continues to deny having any suicidal ideation intent or plan. He states that he knows he should quit using alcohol. He does not wish to participate in inpatient chemical dependency treatment. He wanted to know if we could prescribe something for sleep but night and we discussed using Vistaril. Mental status exam: The patient is a tall overweight male. hygiene is improved. He is dressed in his own clothing. Eye contact is appropriate speech is fluent spontaneous nonpressured. Affect is brighter. He is more interactive in the conversation. He is reporting no suicidal or homicidal ideation intent or plan. He is endorsing no auditory or visual hallucinations or any specific delusions. There is no observed evidence of psychosis. He demonstrates no tangential thinking associations or flight of ideas. He spontaneously describes future oriented thinking. Insight and judgment have improved. He demonstrates no verbal or physical aggressiveness. Plan: The patient will be discharged today from the mental health unit he will reside with his mother. His brother will take him to [facility] for an intake appointment. The patient will be given a prescription for Vistaril 25 mg at bedtime. There is no imminent safety risk is appropriate for continued care as an outpatient. He is instructed to return to the hospital for any acute safety concerns.
[2019-01-08] MEDS: THIAMINE 100 MG TAB PO SCH (11:35)
[2019-01-08] MEDS: FOLIC ACID 1 MG TAB PO SCH (11:35)
--- NOTE | 2019-01-08 23:04 | PN ---
PROGRESS NOTE Patient was seen for followup for chronic kidney disease. He was seen this morning prior to discharge. The patient has an appointment to follow up with us in 1 week's time. PHYSICAL EXAMINATION: This morning blood pressure was 112/65, heart rate 99 per minute. Patient is afebrile. Examination shows no significant edema bilateral lower extremities. Abdomen is obese. LABS: Show sodium 139, potassium 3.8, BUN 28, serum creatinine 2.6. ASSESSMENT: 1. Chronic kidney disease, baseline not known, currently at stage IV secondary to nephrosclerosis and possible underlying medullary sponge kidneys. 2. Right hydronephrosis with 9 mm calculus, currently asymptomatic. Patient will follow up with Urology as outpatient. 3. Hypertension, controlled. CHANTELLE inhibitors have been discontinued. 4. Hypokalemia status post replacement. 5. Metabolic acidosis secondary to renal failure, now improved. PLAN: Continue off of CHANTELLE inhibitors. Follow up as outpatient. The patient will need 24 hour urine for stone profile which can be done as outpatient. MMODL / IJN: [id number] /
== END 2019-01-08 12:19 | disposition home or self-care (01) | DRG 885 ==
LOC: EC 14:29 → 3MHU 22:47
PROVIDERS: ADMIT Psychiatry & Neurology Psychiatry; ATTEND Psychiatry & Neurology Psychiatry
DX: F33.2 Major depressive disorder, recurrent severe without psychotic features (principal); N17.0 Acute kidney failure with tubular necrosis; R45.851 Suicidal ideations; E87.2 Acidosis; K76.6 Portal hypertension; N13.2 Hydronephrosis with renal and ureteral calculous obstruction; Q61.5 Medullary cystic kidney; F10.239 Alcohol dependence with withdrawal, unspecified; F17.210 Nicotine dependence, cigarettes, uncomplicated; E87.6 Hypokalemia; I12.9 Hypertensive chronic kidney disease with stage 1 through stage 4 chronic kidney disease, or unspecified chronic kidney disease; F41.9 Anxiety disorder, unspecified; N18.3 Chronic kidney disease, stage 3 (moderate); R16.2 Hepatomegaly with splenomegaly, not elsewhere classified; D69.59 Other secondary thrombocytopenia; K70.10 Alcoholic hepatitis without ascites; K76.0 Fatty (change of) liver, not elsewhere classified; E83.59 Other disorders of calcium metabolism; L27.1 Localized skin eruption due to drugs and medicaments taken internally; T43.215A Adverse effect of selective serotonin and norepinephrine reuptake inhibitors, initial encounter; T36.1X5A Adverse effect of cephalosporins and other beta-lactam antibiotics, initial encounter; Y92.230 Patient room in hospital as the place of occurrence of the external cause; Z87.442 Personal history of urinary calculi; Z56.0 Unemployment, unspecified
CPT/HCPCS: 74176; 76770; 80048; 80053; 80061; 80306; 81001; 82075; 83036; 83735; 84132; 84443; 85025; 99285

== ENCOUNTER → 2019-02-01 | Outpatient (CLI) | payer OTHER ==
[2019-02-01 16:09] LABS: Albumin/Globulin Ratio 1.67 (1.60-3.17); Anion Gap 7.9 mmol/L (4.00-12.00); Calcium 8.6 mg/dL (8.7-10.3); Carbon Dioxide 16.1 mmol/L (21.6-31.8); Globulin 2.4 g/dL (1.6-3.3); Magnesium 1.9 mg/dL (1.5-2.4); Total Bilirubin 0.5 mg/dL (0.3-1.2); Total Protein 6.4 g/dL (6.2-8.2)
== END | disposition home or self-care (01) ==
LOC: LABWHC1 11:32
PROVIDERS: ATTEND Internal Medicine
DX: E83.39 Other disorders of phosphorus metabolism (principal); N18.3 Chronic kidney disease, stage 3 (moderate)
CPT/HCPCS: 36415; 80053; 83735